=== PATIENT | male | born 1995 | race African-American/Black ===

== ENCOUNTER 2019-07-11 13:13 | Emergency (ER) | payer OTHER ==
[2019-07-11] MEDS ORDERED: BOOSTRIX IM ONE (13:19)
--- NOTE | 2019-07-11 13:22 | Event Note ---
ED Screening Note ED Screening Note: OJI lac to chin and dental trauma, lower right canine abc intact no loc This initial assessment/diagnostic orders/clinical plan/treatment(s) is/are subject to change based on patients health status, clinical progression and re- assessment by fellow clinical providers in the ED. Further treatment and workup at subsequent clinical providers discretion. Patient/guardian urged not to elope from the ED as their condition may be serious if not clinically assessed and managed. Initial orders include: needs tdap lac repair dental fx
[2019-07-11] MEDS ORDERED: NACL 0.9% IR ONE (13:30)
[2019-07-11] MEDS ORDERED: PERCOCET 5/325 PO ONE (14:45)
--- NOTE | 2019-07-11 15:12 | Emergency Department Report ---
ED ENT HPI - General Chief complaint: Dental/Oral Stated complaint: WORK INJURY TO CHIN/PAIN Time Seen by Provider: 07/11/19 13:19 Source: patient Mode of arrival: Ambulatory Limitations: No Limitations - History of Present Illness Initial comments: 24-year-old male presents to the emergency room stating that he had slipped and fell and hit a conveyor belt of bricks. Patient comes in with open laceration to his chin and lower teeth displace. Patient reports his pain is 8 out of 10. Patient received a tetanus shot. MD complaint: tooth pain, trauma/injury -: This afternoon Location: other (and a bubble) Severity: severe Severity scale (0 -10): 8 Quality: stabbing, aching, sharp Consistency: intermittent Improves with: none Worsens with: movement Context- Dental: trauma - Related Data Previous Rx's Medication Instructions Recorded Last Taken Type Amoxicillin/K Clav Tab [Augmentin 1 tab PO Q12HR #20 tab 07/11/19 Unknown Rx 875 mg] Ibuprofen [Motrin 800 MG tab] 800 mg PO Q8HR PRN #30 tablet 07/11/19 Unknown Rx oxyCODONE /ACETAMINOPHEN [Percocet 1 tab PO Q6HR PRN #12 tablet 07/11/19 Unknown Rx 5/325] Allergies Allergy/AdvReac Type Severity Reaction Status Date / Time No Known Allergies Allergy Unverified 07/11/19 13:15 ED Dental HPI - General Chief complaint: Dental/Oral Stated complaint: WORK INJURY TO CHIN/PAIN Time Seen by Provider: 07/11/19 13:19 Source: patient Mode of arrival: Ambulatory Limitations: No Limitations - Related Data Previous Rx's Medication Instructions Recorded Last Taken Type Amoxicillin/K Clav Tab [Augmentin 1 tab PO Q12HR #20 tab 07/11/19 Unknown Rx 875 mg] Ibuprofen [Motrin 800 MG tab] 800 mg PO Q8HR PRN #30 tablet 07/11/19 Unknown Rx oxyCODONE /ACETAMINOPHEN [Percocet 1 tab PO Q6HR PRN #12 tablet 07/11/19 Unknown Rx 5/325] Allergies Allergy/AdvReac Type Severity Reaction Status Date / Time No Known Allergies Allergy Unverified 07/11/19 13:15 ED Review of Systems ROS: Stated complaint: WORK INJURY TO CHIN/PAIN Other details as noted in HPI Comment: All other systems reviewed and negative Constitutional: denies: chills, fever Eyes: denies: eye pain, eye discharge, vision change ENT: denies: ear pain, throat pain Respiratory: denies: cough, shortness of breath, wheezing Cardiovascular: denies: chest pain, palpitations Endocrine: no symptoms reported Gastrointestinal: denies: abdominal pain, nausea, diarrhea Genitourinary: denies: urgency, dysuria Musculoskeletal: denies: back pain, joint swelling, arthralgia Skin: denies: rash, lesions Neurological: denies: headache, weakness, paresthesias Psychiatric: denies: anxiety, depression Hematological/Lymphatic: denies: easy bleeding, easy bruising ED Past Medical Hx - Past Medical History Previous Medical History?: No - Surgical History Past Surgical History?: No - Social History Smoking Status: Never Smoker Substance Use Type: None - Medications Home Medications: Home Medications Medication Instructions Recorded Confirmed Last Taken Type Amoxicillin/K Clav Tab [Augmentin 1 tab PO Q12HR #20 tab 07/11/19 Unknown Rx 875 mg] Ibuprofen [Motrin 800 MG tab] 800 mg PO Q8HR PRN #30 tablet 07/11/19 Unknown Rx oxyCODONE /ACETAMINOPHEN [Percocet 1 tab PO Q6HR PRN #12 tablet 07/11/19 Unknown Rx 5/325] ED Physical Exam - General Limitations: No Limitations General appearance: alert, in no apparent distress - Head Head exam: Absent: atraumatic - Eye Eye exam: Present: PERRL, EOMI - ENT ENT exam: Present: mucous membranes moist - Expanded ENT Exam Expanded Mouth exam: Absent: normal external inspection Teeth exam: Present: dental tenderness #, other (mandible tenderness, laceration to the chin) - Neck Neck exam: Present: normal inspection - Respiratory Respiratory exam: Present: normal lung sounds bilaterally. Absent: respiratory distress - Neurological Exam Neurological exam: Present: alert, oriented X3 - Psychiatric Psychiatric exam: Present: normal affect, normal mood ED Course Vital Signs 07/11/19 07/11/19 07/11/19 13:19 14:41 14:48 Temperature 98 F Pulse Rate 81 Respiratory 18 16 16 Rate Blood Pressure 163/86 Blood Pressure [Left] O2 Sat by Pulse 98 Oximetry 07/11/19 17:46 Temperature 97.9 F Pulse Rate 72 Respiratory 18 Rate Blood Pressure Blood Pressure 134/68 [Left] O2 Sat by Pulse 98 Oximetry - Laceration /Wound Repair Lower Jaw Wound Location: face Wound's Depth, Shape: into muscle, linear Irrigated w/ Saline (ccs): 500 Betadine Prep?: Yes Anesthesia: Lidocaine w/ Epi Volume Anesthetic (ccs): 6 Wound Debrided: moderate Wound Repaired With: sutures Suture Size/Type: 4:0 Number of Sutures: 6 Sterile Dressing Applied?: Yes Progress: Patient tolerated procedure well ED Medical Decision Making - Radiology Data Radiology results: report reviewed Patient: MON[place]NA GONZALEZ MR#: [id number] : 05/22/1977 Acct:[id number] Age/Sex: 42 / F ADM Date: 07/11/19 Loc: ED Attending Dr: Ordering Physician: MANUELA DUBOIS Date of Service: 07/11/19 Procedure(s): XR chest routine 2V Accession Number(s): [id number] cc: MANUELA DUBOIS Fluoro Time In Minutes: CHEST 2 VIEWS INDICATION / CLINICAL INFORMATION: cough and chest congestion. COMPARISON: 2 views of the chest from 10/28/2018. FINDINGS: SUPPORT DEVICES: None. HEART / MEDIASTINUM: Stable mild cardiomegaly. LUNGS / PLEURA: No significant pulmonary or pleural abnormality. No pneumothorax. ADDITIONAL FINDINGS: No significant additional findings. IMPRESSION: 1. No acute abnormality of the chest. 2. Stable mild cardiomegaly. Signer Name: Lloyd Perry MD Signed: 07/11/2019 5:02 PM Workstation Name: [id number] Transcribed By: MN Dictated By: Lloyd Perry MD Electronically Authenticated By: Lloyd Perry MD Signed Date/Time: 07/11/191701 DD/ 00 TD/TT: - Medical Decision Making 24-year-old male presents to the emergency room stating that he had slipped and fell and hit a conveyor belt of bricks. Patient comes in with open laceration to his chin and lower teeth displace. Patient reports his pain is 8 out of 10. Patient received a tetanus shot. Facial CT has been ordered. Percocet 2 tabs by mouth has been ordered. has examined patient. Critical care attestation.: If time is entered above; I have spent that time in minutes in the direct care of this critically ill patient, excluding procedure time. ED Disposition Clinical Impression: Laceration of chin Qualifiers: Encounter type: initial encounter Qualified Code(s): S01.81XA - Laceration without foreign body of other part of head, initial encounter Dental trauma Qualifiers: Encounter type: initial encounter Qualified Code(s): S09.93XA - Unspecified injury of face, initial encounter Fractured tooth due to trauma with complication Qualifiers: Encounter type: initial encounter Fracture type: open Qualified Code(s): S02.5XXB - Fracture of tooth (traumatic), initial encounter for open fracture Disposition: TO HOME OR SELFCARE Is pt being admited?: No Does the pt Need Aspirin: No Condition: Stable Instructions: Suture Care (ED), Laceration (ED), Acute dental trauma (ED) Additional Instructions: Antibiotics as prescribed. Pain medication as needed. Important to follow-up with oral maxillofacial provider. Prescriptions: Amoxicillin/K Clav Tab [Augmentin 875 mg] 1 tab PO Q12HR #20 tab Ibuprofen [Motrin 800 MG tab] 800 mg PO Q8HR PRN #30 tablet PRN Reason: Pain, Moderate (4-6) oxyCODONE /ACETAMINOPHEN [Percocet 5/325] 1 tab PO Q6HR PRN #12 tablet PRN Reason: Pain Referrals: PRIMARY CARE, [Primary Care Provider] - 3-5 Days Srinivasan Chavez Oral Surgeon [Other] - 3-5 Days [facility]ral [facility]illofacial [Other] - 3-5 Days Forms: Work/School Release Form(ED), Accompanied Note
--- NOTE | 2019-07-11 17:27 | Cat Scan Report ---
CT MAXILLOFACIAL WITHOUT CONTRAST INDICATION: trauma to face. TECHNIQUE: Maxillofacial CT without contrast. All CT scans at this location are performed using CT dose reductio n for ALARA by means of automated exposure control. COMPARISON: None available. FINDINGS: FACIAL BONES: There is an acute appearing fracture of the right mandibular canine as well as a possib le posterior dislocation of the right lateral mandibular incisor. No additional fractures are appreci ated. There is chronic appearing apical lucency around the left first maxillary incisor most likely s econdary chronic periodontal disease. There is no other maxillofacial fracture or subluxation. Temporomandibular joints appear normally ali gned. PARANASAL SINUSES: No significant abnormality. ORBITS: No significant abnormality. VISUALIZED INTRACRANIAL STRUCTURES: No significant abnormality. 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 IMPRESSION: 1. Acute appearing fracture of the right mandibular canine as well as probable acute posterior disl ocation of the right lateral mandibular incisor. 2. No additional acute maxillofacial fracture. Signer Name: Jacob Nunes MD Signed: 07/11/2019 5:23 PM Workstation Name: [id number]
[2019-07-11 17:48] VITALS: BP 134/68
[2019-07-11] MEDS ORDERED: XYLOCAINE 0.5%/ EPI 1:200,000 INFILTRATI ONE (18:07)
[2019-07-11] MEDS ORDERED: XYLOCAINE 1%/ EPI 1:100,000 INFILTRATI ONE (18:23)
[2019-07-11] MEDS ORDERED: XYLOCAINE 2%/ EPI 1:200,000 INFILTRATI ONE (18:25)
[2019-07-11] MEDS ORDERED: NACL 0.9% 1000 ML 1,000 ML ONE (21:21)
== END 2019-07-11 21:31 | disposition home or self-care (01) ==
LOC: ED 13:13
DX: S02.5XXB Fracture of tooth (traumatic), initial encounter for open fracture (principal); S09.93XA Unspecified injury of face, initial encounter; W01.0XXA Fall on same level from slipping, tripping and stumbling without subsequent striking against object, initial encounter; Y93.89 Activity, other specified; Y92.89 Other specified places as the place of occurrence of the external cause; Y99.8 Other external cause status
CPT/HCPCS: 12011; 70486; 90471; 90715; 99283; J7030

== ENCOUNTER 2022-08-12 16:30 | Emergency (ER) | payer SELFPAY ==
[2022-08-12 16:43] VITALS: BP 138/86
== END 2022-08-13 13:07 | disposition left against medical advice (07) ==
LOC: ED 16:30
DX: R07.9 Chest pain, unspecified (principal); Z53.21 Procedure and treatment not carried out due to patient leaving prior to being seen by health care provider
CPT/HCPCS: 93005